=== PATIENT | male | born 1960 | race Caucasian/White ===

== ENCOUNTER → 2018-12-28 11:22 | Outpatient (CLI) | payer OTHER, SELFPAY ==
[2018-12-28 12:41] LABS: AST(SGOT) 21 U/L (15-37); Alanine Aminotransfer ALT/SGPT 39 U/L (16-61); Albumin, Serum 3.9 g/dL (3.2-5.0); Alkaline Phosphatase 51 U/L (45-117); Bilirubin, Direct 0.15 mg/dL (0.00-0.30); Cholesterol 150 mg/dL (200); Globulin 3.8 g/dL (2.2-4.2); High Density Lipoprotein 59 mg/dL; Protein, Total 7.7 g/dL (6.4-8.2); Triglycerides 100 mg/dL; Very Low Density Lipoprotein 20 mg/dL (5-40)
== END ==
PROVIDERS: Nurse Practitioner Family; Referring Provider Physician Assistant Medical; Visit Provider Physician Assistant Medical
DX: E78.5 Hyperlipidemia, unspecified (principal); I25.10 Atherosclerotic heart disease of native coronary artery without angina pectoris
CPT/HCPCS: 36415; 80061; 80076

== ENCOUNTER → 2019-07-26 08:35 | Outpatient (CLI) | payer OTHER, SELFPAY ==
[2019-05-06 11:08] VITALS: BMI 30.2
--- NOTE | 2019-07-26 08:37 | VDLE_ITS ---
Reason For Study: Swelling RIGHT LEFT GSV is normal. CFV is compressible, spontaneous, phasic, CFV is compressible, spontaneous, phasic, competent, and demonstrates normal competent and demonstrates normal augmentation. augmentation. FV is compressible, spontaneous, phasic, FV is compressible, spontaneous, phasic, competent and demonstrates normal competent and demonstrates normal augmentation. augmentation. POP V is compressible, spontaneous, phasic, POP V is compressible, spontaneous, phasic, competent and demonstrates normal competent and demonstrates normal augmentation. augmentation. T/P Trunk is compressible. T/P Trunk is compressible. PTV is compressible. PTV is compressible. LT PerV is compressible. RT PerV is compressible. Left GSV is partially compressible in the Procedure distal thigh. Exam performed in department. Compared to study done on 05/03/19 @ [facility]. A preliminary report was called and/or faxed to [facility]. Interpretation Summary Deep veins of the lower extremities are bilaterally patent and compressible segmentally. There is no evidence of deep vein thrombosis on either side. Valvular competence appears intact within the proximal deep venous systems bilaterally. The right great saphenous vein appears patent and compressible segmentally. Acute superficial thrombophlebitis is noted in the left great saphenous vein in the distal thigh. The remainder of the left great saphenous vein is patent and compressible. Ordering Physician: Kavon Saunders Performed By: Nelida Mace RVT
[2019-07-26 10:01] LABS: AST(SGOT) 25 U/L (15-37); Alanine Aminotransfer ALT/SGPT 39 U/L (16-61); Albumin, Serum 3.7 g/dL (3.2-5.0); Alkaline Phosphatase 56 U/L (45-117); Bilirubin, Direct 0.11 mg/dL (0.00-0.30); Cholesterol 140 mg/dL (200); Globulin 4.1 g/dL (2.2-4.2); High Density Lipoprotein 58 mg/dL; Protein, Total 7.8 g/dL (6.4-8.2); Triglycerides 99 mg/dL; Very Low Density Lipoprotein 20 mg/dL (5-40)
== END ==
PROVIDERS: Referring Provider Internal Medicine Cardiovascular Disease; Visit Provider Internal Medicine Cardiovascular Disease
DX: M79.89 Other specified soft tissue disorders (principal); I82.409 Acute embolism and thrombosis of unspecified deep veins of unspecified lower extremity; E78.2 Mixed hyperlipidemia
CPT/HCPCS: 36415; 80061; 80076; 93970

== ENCOUNTER → 2019-09-27 08:45 | Outpatient (CLI) | payer OTHER, SELFPAY ==
[2019-08-23 10:53] VITALS: BMI 30.2
--- NOTE | 2019-09-27 08:47 | VDLE_ITS ---
Reason For Study: swelling RIGHT LEFT CFV is compressible, spontaneous, phasic, CFV is compressible, spontaneous, phasic, competent and demonstrates normal competent, and demonstrates normal augmentation. augmentation. FV is compressible, spontaneous, phasic, FV is compressible, spontaneous, phasic, competent and demonstrates normal competent and demonstrates normal augmentation. augmentation. POP V is compressible, spontaneous, phasic, POP V is compressible, spontaneous, phasic, competent and demonstrates normal competent and demonstrates normal augmentation. augmentation. T/P Trunk is compressible. T/P Trunk is compressible. PTV is compressible. PTV is compressible. RT PerV is compressible. LT PerV is compressible. SFJ is competent and measures .64 x .75 cm. SFJ is competent and measures .48 x .50 cm. GSV proximal thigh measures .22 x .25 cm. GSV proximal thigh measures .23 x .28 cm. GSV at knee measures .22 x .25 cm. GSV at knee measures .30 x .28 cm. GSV above knee is competent. GSV above knee is INCOMPETENT for greater GSV below knee is competent. than 0.5 seconds. SSV proximal calf is competent and GSV below knee is INCOMPETENT for greater measures .26 x .32 cm. than 0.5 seconds. Procedure GSV is now compressible. Exam performed in department. SSV proximal calf is competent and The exam was diagnostic. measures .21 x .22 cm. Interpretation Summary Deep veins of the lower extremities are bilaterally patent and compressible segmentally. There is no evidence of deep vein thrombosis on either side. Valvular competence appears intact within the proximal deep venous systems bilaterally. The great saphenous veins appear bilaterally patent and compressible segmentally. Sapheno-femoral junctions are bilaterally competent . The right great saphenous vein appears segmentally competent. The left great saphenous vein appears segmentally incompetent. Small saphenous veins are patent and competent bilaterally. There appears to be resolution of the superficial thrombophlebitis in the left great saphenous vein noted in a prior study on 07/26/2019. Ordering Physician: David Devine Performed By: Sage Haro RVT
== END ==
PROVIDERS: Referring Provider Surgery; Visit Provider Surgery
DX: I83.10 Varicose veins of unspecified lower extremity with inflammation (principal); M79.605 Pain in left leg; M79.89 Other specified soft tissue disorders; I80.3 Phlebitis and thrombophlebitis of lower extremities, unspecified
CPT/HCPCS: 93970

== ENCOUNTER → 2021-11-29 10:27 | Outpatient (CLI) | payer OTHER, SELFPAY ==
[2021-11-29 11:25] LABS: AST(SGOT) 27 U/L (15-37); Alanine Aminotransfer ALT/SGPT 54 U/L (16-61); Albumin, Serum 3.7 g/dL (3.2-5.0); Alkaline Phosphatase 58 U/L (45-117); Bilirubin, Direct 0.11 mg/dL (0.00-0.30); Cholesterol 159 mg/dL (200); Globulin 4.2 g/dL (2.2-4.2); High Density Lipoprotein 70 mg/dL; Protein, Total 7.9 g/dL (6.4-8.2); Triglycerides 73 mg/dL; Very Low Density Lipoprotein 15 mg/dL (5-40)
== END ==
PROVIDERS: PCP Family Medicine; Visit Provider Internal Medicine Cardiovascular Disease
DX: E78.00 Pure hypercholesterolemia, unspecified (principal)
CPT/HCPCS: 36415; 80061; 80076

== ENCOUNTER → 2022-11-18 | Outpatient (CLI) | payer OTHER, SELFPAY ==
[2022-11-18 14:11] LABS: AST(SGOT) 23 U/L (15-37); Alanine Aminotransfer ALT/SGPT 45 U/L (16-61); Albumin, Serum 3.8 g/dL (3.2-5.0); Alkaline Phosphatase 49 U/L (45-117); Bilirubin, Direct 0.17 mg/dL (0.00-0.30); Cholesterol 149 mg/dL (200); High Density Lipoprotein 70 mg/dL; Protein, Total 7.8 g/dL (6.4-8.2); Triglycerides 80 mg/dL; Very Low Density Lipoprotein 16 mg/dL (5-40)
== END | disposition home or self-care (01) ==
LOC: LAB 13:02
PROVIDERS: PCP Family Medicine; Visit Provider Internal Medicine Cardiovascular Disease
DX: E78.00 Pure hypercholesterolemia, unspecified (principal)
CPT/HCPCS: 36415; 80061; 80076

== ENCOUNTER → 2024-01-30 | Outpatient (CLI) | payer OTHER, SELFPAY ==
--- OUTSIDE RECORDS SUMMARY | 2024-01-30 06:49 | XMS RPT_ITS | CCD ---
Author Name Unknown Address [address] [place] [address] Organization [facility] Care Team Providers Care Career Services Manager Name Role Phone Lexus Sow Unavailable Unavailable TAMI Cohen, Estela Jacobs Unavailable [phone] Jared Real Unavailable Unavailable Yoahn An MD Primary Care Provider Medications Completed/Discontinued Medications Medication Drug Class(es) Dates Sig (Normalized) Sig (Original) aspirin 81 mg chewable tablet (6 sources) Nonsteroidal Anti-inflammatory Drug Start: 05-15-2021 take 1 tablet by mouth once daily aspirin 81 mg chewable tablet Indications: Coronary artery disease involving big sandy heart, unspecified vessel or lesion type, unspecified whether angina present Take 1 tablet by mouth once daily. 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; Translations: [Coronary arteriosclerosis] Onset: 02-11-2011 07-31-2016 Chronic Disorders of lipid metabolism (7 sources) Hyperlipidemia; Translations: [Hypercholesterolemia ] Onset: 02-11-2011 02-11-2011 Chronic Essential hypertension (3 sources) Hypertensive disorder; Translations: [Essential (primary) hypertension] Onset: 12-14-2021 12-14-2021 Chronic Other nutritional; endocrine; and metabolic disorders (2 sources) Obesity caused by energy imbalance; Translations: [Other obesity due to excess calories] Onset: 12-14-2021 12-14-2021 Chronic Screening or history of mental health and substance abuse (4 sources) Tobacco dependence syndrome; Translations: [Nicotine dependence, unspecified, uncomplicated] Onset: 02-11-2011 02-11-2011 Chronic Spondylosis; intervertebral disc disorders; other back problems (1 source) Degeneration of lumbar intervertebral disc; Translations: [Other intervertebral disc degeneration, lumbar region] 01-27-2024 Chronic Unclassified (3 sources) Long-term drug therapy; Translations: [Other bobbin marker (current) drug therapy] Onset: 02-11-2011 02-11-2011 Past or Other Problems Problem Classification Problem Date Documented Da te Episodic/Chronic Abdominal hernia (2 sources) Umbilical hernia; Translations: [Umbilical hernia without obstruction or gangrene] Onset: 11-06-2012 11-06-2012 Episodic Coronary atherosclerosis and other heart disease (7 sources) Coronary angioplasty status; Translations: [History of myocardial infarction] Onset: 02-11-2011 02-11-2011 Episodic Other aftercare (1 source) Other bobbin marker (current) drug therapy; Translations: [Other fci (current) drug therapy] Onset: 02-11-2011 02-11-2011 Episodic Other circulatory disease (5 sources) Abnormal result of cardiovascular function study, unspecified; Translations: [History of myocardial infarction] Onset: 02-11-2011 02-11-2011 Episodic Other nutritional; endocrine; and metabolic disorders (11 sources) Body mass index (BMI) 28.0-28.9, adult; Translations: [Body mass index (BMI) 29.0-29.9, adult] Onset: 12-09-2013 Resolved: 02-03-2017 02-03-2017 Episodic Other nutritional; endocrine; and metabolic disorders (6 sources) Body mass index (BMI) 27.0-27.9, adult; Translations: [Body mass index (BMI) 27.0-27.9, adult] Onset: 06-12-2015 Resolved: 02-02-2016 06-12-2015 Episodic Other nutritional; endocrine; and metabolic disorders (3 sources) Body mass index (BMI) 29.0-29.9, adult; Translations: [Body mass index (BMI) 29.0-29.9, adult] Onset: 02-03-2017 02-03-2017 Episodic Residual codes; unclassified (3 sources) FH: Raised blood lipids; Translations: [Family history of other endocrine, nutritional and metabolic diseases] 06-12-2015 Episodic Residual codes; unclassified (3 sources) Family history of ischemic heart disease and other diseases of the circulatory system; Translations: [Family history of ischemic heart disease and other diseases of the circulatory system] 06-12-2015 Episodic Unclassified (6 sources) FH: Hypertension; Translations: [Family history of ischemic heart disease and other diseases of the circulatory system] 06-12-2015 Episodic Results Test Name Value Interpretation Reference Range Facil ity Vital Signs Date Time Vital Sign Value Performing Clinician Madhu maurer 01-27-2024 14:03-0500 Body weight 103.42 kg Yohan An MD Work Phone: [facility] 01-27-2024 14:03-0500 Diastolic blood pressure 74 mm[Hg] Yohan An MD Work Phone: [facility] 01-27-2024 14:03-0500 Heart rate 102 /min Yohan An MD Work Phone: [facility] 01-27-2024 14:03-0500 Respiratory rate 18 /min Yohan An MD Work Phone: [facility] 01-27-2024 14:03-0500 SaO2% (BldA) [Mass fraction] 95 % Yohan An MD Work Phone: [facility] 01-27-2024 14:03-0500 Systolic blood pressure 128 mm[Hg] Yohan An MD Work Phone: [facility] 08-12-2017 11:56-0400 BMI (Body Mass Index) 28.37 kg/m2 [facility] Work Phone: 08-12-2017 11:56-0400 Weight 102.97 kg [facility] Work Phone: 02-03-2017 13:06-0500 BP Diastolic 78 mm[Hg] [facility] Work Phone: 02-03-2017 13:06-0500 BP Systolic 126 mm[Hg] [facility] Work Phone: 02-03-2017 13:06-0500 Pulse (Heart Rate) 84 /min [facility] Work Phone: 02-03-2017 13:06-0500 Respiratory Rate 16 /min [facility] Work Phone: 08-09-2016 15:33-0400 Heart rate 90 /min Estela Cohen PA-C [employer] Work Phone: 08-09-2016 15:23-0400 BSA (Body Surface Area) 2.31 m2 [facility] Work Phone: 12-09-2013 15:10-0500 Heart rate 453 ms Estela Cohen PA-C [facility] Work Phone: 04-20-2012 09:08-0400 Height 190.5 cm [facility] Work Phone: Encounters Encounter Date Encounter Type Care Provider Facility Start: 01-27-2024 End: 01-27-2024 Patient encounter procedure Yohan An MD Work Phone: [facility] Procedures Date Procedure Procedure Detail Performing Clinician Start: 11-29-2021 Lipid 1996 panel - S nery or Plasma Yohan An MD Work Phone: Start: 08-12-2017 End: 09-01-2017 *BMP Estela Cohen PA-C Work Phone: Start: 08-12-2017 End: 09-01-2017 *Hepatic Function Panel Estela grajeda PA-C Work Phone: Start: 08-12-2017 End: 09-01-2017 CBC W Auto Differential panel - Blood Estela Cohen PA-C Work Phone: Start: 08-12-2017 End: 08-12-2017 Follow Up Appt Other Estela soto PA-C Work Phone: Start: 08-12-2017 End: 09-01-2017 Lipid 1996 panel - Serum or Plasma Estela Cohen PA-C Work Phone: Start: 08-12-2017 End: 08-12-2017 Follow Up Appt Other Estela soto PA-C Work Phone: Start: 02-03-2017 End: 02-03-2017 Follow Up Appt 6 months Kavon Saunders MD Start: 02-03-2017 End: 02-03-2017 MMM Kavon Saunders MD Start: 02-03-2017 End: 02-03-2017 Dietary management education, guidance, and counseling Estela Cohen PA-C Start: 02-03-2017 End: 02-03-2017 Follow Up Appt 6 months Kavon Saunders MD Start: 02-03-2017 End: 02-03-2017 MMM Kavon Saunders MD Start: 08-29-2016 End: 10-30-2016 *Hepatic Function Panel Kavon Saunders MD Start: 08-29-2016 End: 10-30-2016 Lipid 1996 panel - Serum or Plasma Kavon Saunders MD Start: 08-29-2016 End: 10-30-2016 *Hepatic Function Panel Kavon Saunders MD Start: 08-29-2016 End: 10-30-2016 Lipid panel [AGGREGATE] Kavon Saunders MD Start: 08-09-2016 End: 08-07-2017 Ecg routine ecg w/least 12 lds w/i&r Estela Cohen PA-C Work Phone: Start: 08-09-2016 End: 08-07-2017 Follow Up Appt 6 months Estela grajeda PA-C Work Phone: Start: 08-09-2016 End: 08-07-2017 PFM Estela Cohen PA-C Work Phone: Start: 08-09-2016 End: 08-07-2017 Electrocardiogram, complete Estela Cohen PA-C Work Phone: Start: 08-09-2016 End: 08-07-2017 Follow Up Appt 6 months Estela grajeda PA-C Work Phone: Start: 08-09-2016 End: 08-07-2017 PFM Estela Cohen PA-C Work Phone: Start: 02-02-2016 End: 02-24-2016 *Hepatic Function Panel Kavon Saunders MD Start: 02-02-2016 End: 02-02-2016 Follow Up Appt 6 months Kavon Saunders MD Start: 02-02-2016 End: 02-24-2016 Lipid 1996 panel - Serum or Plasma Kavon Saunders MD Start: 02-02-2016 End: 02-02-2016 GUILLERMO Saunders MD Start: 02-02-2016 End: 02-24-2016 *Hepatic Function Panel Kavon Saunders MD Start: 02-02-2016 End: 02-02-2016 Follow Up Appt 6 months Kavon Saunders MD Start: 02-02-2016 End: 02-24-2016 Lipid panel [AGGREGATE] Kavon Saunders MD Start: 02-02-2016 End: 02-02-2016 GUILLERMO Saunders MD Start: 06-12-2015 End: 06-13-2015 Documentation of current medications Estela Cohen PA-C Work Phone: Start: 06-12-2015 End: 06-12-2015 Follow Up Appt 6 months Estela grajeda PA-C Work Phone: Start: 06-12-2015 End: 06-12-2015 PFM Estela Cohen PA-C Work Phone: Start: 06-12-2015 End: 06-13-2015 Smoking cessation education Estela Cohen PA-C Work Phone: Start: 06-12-2015 End: 06-13-2015 Documentation of current medications Estela Cohen PA-C Work Phone: Start: 06-12-2015 End: 06-12-2015 Follow Up Appt 6 months Estela grajeda PA-C Work Phone: Start: 06-12-2015 End: 06-12-2015 PFM Estela Cohen PA-C Work Phone: Start: 06-12-2015 End: 06-13-2015 Smoking cessation education Estela Cohen PA-C Work Phone: Start: 12-12-2014 End: 06-12-2015 *Hepatic Function Panel Kavon Saunders MD Start: 12-12-2014 End: 06-05-2015 Follow Up Appt 6 months Kavon Saunders MD Start: 12-12-2014 End: 06-12-2015 Lipid 1996 panel - Serum or Plasma Kavon Saunders MD Start: 12-12-2014 End: 06-05-2015 MMM Kavon Saunders MD Start: 12-12-2014 End: 06-12-2015 *Hepatic Function Panel Kavon Saunders MD Start: 12-12-2014 End: 06-05-2015 Follow Up Appt 6 months Kavon Saunders MD Start: 12-12-2014 End: 06-12-2015 Lipid panel [AGGREGATE] Kavon Saunders MD Start: 12-12-2014 End: 06-05-2015 MMM Kavon Saunders MD Start: 07-01-2014 End: 06-05-2015 *Hepatic Function Panel Kavon Saunders MD Start: 07-01-2014 End: 06-05-2015 Lipid 1996 panel - Serum or Plasma Kavon Saunders MD Start: 07-01-2014 End: 06-05-2015 *Hepatic Function Panel aKvon Saunders MD Start: 07-01-2014 End: 06-05-2015 Lipid panel [AGGREGATE] Kavon Saunders MD Start: 06-06-2014 End: 06-06-2014 Follow Up Appt 6 months Estela grajeda PA-C Work Phone: Start: 06-06-2014 End: 06-05-2015 Nuclear stress test -exercise Estela Cohen PA-C Work Phone: Start: 06-06-2014 End: 06-06-2014 PF Estela Cohen PA-C Work Phone: Start: 06-06-2014 End: 06-06-2014 Follow Up Appt 6 months Estela grajeda PA-C Work Phone: Start: 06-06-2014 End: 06-05-2015 Nuclear stress test -exercise Estela oChen PA-C Work Phone: Start: 06-06-2014 End: 06-06-2014 PFM Estela Cohen PA-C Work Phone: Start: 12-09-2013 End: 05-25-2014 Ecg routine ecg w/least 12 lds w/i&r Kavon Saunders MD Start: 12-09-2013 End: 05-25-2014 Follow Up Appt 6 months Kavon Saunders MD Start: 12-09-2013 End: 05-25-2014 MMM Kavon Saunders MD Start: 12-09-2013 End: 05-25-2014 Electrocardiogram, complete Kavon Saunders MD Start: 12-09-2013 End: 05-25-2014 Follow Up Appt 6 months Kavon Saunders MD Start: 12-09-2013 End: 05-25-2014 MMM Kavon Saunders MD Start: 12-01-2013 End: 01-10-2014 Ecg routine ecg w/least 12 lds w/i&r Estela Cohen PA-C Work Phone: Start: 12-01-2013 End: 01-10-2014 Lipid 1996 panel - Serum or Plasma Estela Cohen PA-C Work Phone: Start: 12-01-2013 End: 01-10-2014 *Hepatic Function Panel Estela grajeda PA-C Work Phone: Start: 12-01-2013 End: 01-10-2014 Lipid panel [AGGREGATE] Estela grajeda PA-C Work Phone: Start: 05-31-2013 End: 06-14-2013 *Hepatic Function Panel Kavon Saunders MD Start: 05-31-2013 End: 06-14-2013 Lipid 1996 panel - Serum or Plasma Kavon Saunders MD Start: 05-31-2013 End: 06-14-2013 *Hepatic Function Panel Kavon Saunders MD Start: 05-31-2013 End: 06-14-2013 Lipid panel [AGGREGATE] Kvaon Saunders MD Start: 05-06-2013 End: 05-06-2013 Follow Up Appt 6 months Estela grajeda PA-C Work Phone: Start: 05-06-2013 End: 05-06-2013 PFM Estela Cohen PA-C Work Phone: Start: 05-06-2013 End: 05-06-2013 Follow Up Appt 6 months Estela grajeda PA-C Work Phone: Start: 05-06-2013 End: 05-06-2013 PFM Estela Cohen PA-C Work Phone: Start: 12-07-2012 End: 12-31-2012 *Hepatic Function Panel Kavon Saunders MD Start: 12-07-2012 End: 12-31-2012 Lipid 1996 panel - Serum or Plasma Kavon Saunders MD Start: 12-07-2012 End: 12-31-2012 *Hepatic Function Panel Kavon Saunders MD Start: 12-07-2012 End: 12-31-2012 Lipid panel [AGGREGATE] Kavon Saunders MD Start: 10-19-2012 End: 10-19-2012 Follow Up Appt 6 months Kavon Saunders MD Start: 10-19-2012 End: 10-19-2012 Follow Up Appt 6 months Kavon Saunders MD Start: 06-29-2012 End: 12-31-2012 *Hepatic Function Panel Kavon Saunders MD Start: 06-29-2012 End: 12-31-2012 Lipid 1996 panel - Serum or Plasma Kavon Saunders MD Start: 06-29-2012 End: 12-31-2012 *Hepatic Function Panel Kavon Saunders MD Start: 06-29-2012 End: 12-31-2012 Lipid panel [AGGREGATE] Kavon Saunders MD Start: 04-20-2012 End: 05-06-2013 Follow Up Appt 6 months Kavon Saunders MD Start: 04-20-2012 End: 07-26-2012 Follow Up Appt Other Kavon Saunders MD Start: 04-20-2012 End: 05-06-2013 Follow Up Appt 6 months Kavon Saunders MD Start: 04-20-2012 End: 07-26-2012 Follow Up Appt Other Kavon Saunders MD Plan of Treatment Date Care Activity Detail Author Start: 05-15-2031 Urine microalbumin profile DTaP,Tdap,Td Vaccine (2 - Td or Tdap) [facility] Start: 11-29-2026 Lipid panel Lipid Screening [facility] Start: 01-27-2025 Annual PCP Team Chronic Disease Visit Annual PCP Team Chronic Disease Visit [facility] Start: 01-27-2025 BP Controlled (<130/80) BP Controlled (<130/80) [facility] Start: 12-01-2023 Depression Assessment Depression Assessment [facility] Start: 08-01-2023 Influenza vaccination Influenza Vaccine (#1) [facility] Start: 12-14-2022 Annual PCP Team Chronic Disease Visit Annual PCP Team Chronic Disease Visit [facility] Start: 12-07-2022 Screening for malignant neoplasm of colon [facility] Start: 2021 RSV Vaccine (1 - 1-dose 60+ series) RSV Vaccine (1 - 1-dose 60+ series) [facility] Start: 03-02-2018 End: 09-05-2017 *Hepatic Function Panel *Hepatic Function Panel [facility] Work Phone: Start: 03-02-2018 End: 09-05-2017 Lipid 1996 panel *Lipid Profile CC PCP [facility] Work Phone: Start: 02-09-2018 End: 02-09-2018 Appointment Appointment [facility] Work Phone: Start: 08-12-2017 End: 09-01-2017 *BMP *BMP [facility] Work Phone: Start: 08-12-2017 End: 09-01-2017 *Hepatic Function Panel *Hepatic Function Panel [facility] Work Phone: Start: 08-12-2017 End: 09-01-2017 CBC W Auto Differential panel - Blood *CBC without Diff [facility] Work Phone: Start: 08-12-2017 End: 08-12-2017 Follow Up Appt Other Follow Up Appt Other [facility] Work Phone: Start: 08-12-2017 End: 09-01-2017 Lipid 1996 panel *Lipid Profile CC PCP [facility] Work Phone: Start: 08-12-2017 End: 08-12-2017 *BMP *BMP [facility] Work Phone: Start: 08-12-2017 End: 08-12-2017 *Hepatic Function Panel *Hepatic Function Panel [facility] Work Phone: Start: 08-12-2017 End: 08-12-2017 CBC W Auto Differential panel - Blood *CBC without Diff [facility] Work Phone: Start: 08-12-2017 End: 08-12-2017 Follow Up Appt Other Follow Up Appt Other [facility] Work Phone: Start: 08-12-2017 End: 08-12-2017 Lipid panel [AGGREGATE] *Lipid Profile CC PCP [facility] Work Phone: Start: 02-03-2017 End: 02-03-2017 Follow Up Appt 6 months Follow Up Appt 6 months [facility] Work Phone: Start: 02-03-2017 End: 02-03-2017 MMM MMM [facility] Work Phone: Start: 02-03-2017 End: 02-03-2017 Follow Up Appt 6 months Follow Up Appt 6 months [facility] Work Phone: Start: 02-03-2017 End: 02-03-2017 MMM MMM [facility] Work Phone: Start: 08-29-2016 End: 10-30-2016 *Hepatic Function Panel *Hepatic Function Panel [facility] Work Phone: Start: 08-29-2016 End: 10-30-2016 Lipid 1996 panel *Lipid Profile CC PCP [facility] Work Phone: Start: 08-29-2016 End: 10-30-2016 *Hepatic Function Panel *Hepatic Function Panel [facility] Work Phone: Start: 08-29-2016 End: 10-30-2016 Lipid panel [AGGREGATE] *Lipid Profile CC PCP [facility] Work Phone: Start: 08-09-2016 End: 08-07-2017 Ecg routine ecg w/least 12 lds w/i&r EKG (In office) [facility] Work Phone: Start: 08-09-2016 End: 08-07-2017 Follow Up Appt 6 months Follow Up Appt 6 months [facility] Work Phone: Start: 08-09-2016 End: 08-07-2017 PFM PFM [facility] Work Phone: Start: 08-09-2016 End: 08-07-2017 Electrocardiogram, complete EKG (In office) [facility] Work Phone: Start: 08-09-2016 End: 08-07-2017 Follow Up Appt 6 months Follow Up Appt 6 months [facility] Work Phone: Start: 08-09-2016 End: 08-07-2017 PFM PFM [facility] Work Phone: Start: 2016 Prostate specific antigen measurement Prostate Cancer Screening Discussion [facility] Start: 02-02-2016 End: 02-24-2016 *Hepatic Function Panel *Hepatic Function Panel [facility] Work Phone: Start: 02-02-2016 End: 02-02-2016 Follow Up Appt 6 months Follow Up Appt 6 months [facility] Work Phone: Start: 02-02-2016 End: 02-24-2016 Lipid 1996 panel *Lipid Profile CC PCP [facility] Work Phone: Start: 02-02-2016 End: 02-02-2016 MMM MMM [facility] Work Phone: Start: 02-02-2016 End: 02-24-2016 *Hepatic Function Panel *Hepatic Function Panel [facility] Work Phone: Start: 02-02-2016 End: 02-02-2016 Follow Up Appt 6 months Follow Up Appt 6 months [facility] Work Phone: Start: 02-02-2016 End: 02-24-2016 Lipid panel [AGGREGATE] *Lipid Profile CC PCP [facility] Work Phone: Start: 02-02-2016 End: 02-02-2016 MMM MMM [facility] Work Phone: Start: 06-12-2015 End: 06-12-2015 Follow Up Appt 6 months Follow Up Appt 6 months [facility] Work Phone: Start: 06-12-2015 End: 06-12-2015 PFM PFM [facility] Work Phone: Start: 06-12-2015 End: 06-12-2015 Follow Up Appt 6 months Follow Up Appt 6 months [facility] Work Phone: Start: 06-12-2015 End: 06-12-2015 PFM PFM [facility] Work Phone: Start: 12-12-2014 End: 06-12-2015 *Hepatic Function Panel *Hepatic Function Panel [facility] Work Phone: Start: 12-12-2014 End: 06-05-2015 Follow Up Appt 6 months Follow Up Appt 6 months [facility] Work Phone: Start: 12-12-2014 End: 06-12-2015 Lipid 1996 panel *Lipid Profile CC PCP [facility] Work Phone: Start: 12-12-2014 End: 06-05-2015 MMM MMM [facility] Work Phone: Start: 12-12-2014 End: 06-12-2015 *Hepatic Function Panel *Hepatic Function Panel [facility] Work Phone: Start: 12-12-2014 End: 06-05-2015 Follow Up Appt 6 months Follow Up Appt 6 months [facility] Work Phone: Start: 12-12-2014 End: 06-12-2015 Lipid panel [AGGREGATE] *Lipid Profile CC PCP [facility] Work Phone: Start: 12-12-2014 End: 06-05-2015 MMM MMM [facility] Work Phone: Start: 07-01-2014 End: 06-05-2015 *Hepatic Function Panel *Hepatic Function Panel [facility] Work Phone: Start: 07-01-2014 End: 06-05-2015 Lipid 1996 panel *Lipid Profile CC PCP [facility] Work Phone: Start: 07-01-2014 End: 06-05-2015 *Hepatic Function Panel *Hepatic Function Panel [facility] Work Phone: Start: 07-01-2014 End: 06-05-2015 Lipid panel [AGGREGATE] *Lipid Profile CC PCP [facility] Work Phone: Start: 06-06-2014 End: 06-06-2014 Follow Up Appt 6 months Follow Up Appt 6 months [facility] Work Phone: Start: 06-06-2014 End: 06-06-2014 Nuclear stress test -exercise Nuclear stress test -exercise [facility] Work Phone: Start: 06-06-2014 End: 06-06-2014 PFM PFM [facility] Work Phone: Start: 06-06-2014 End: 06-06-2014 Follow Up Appt 6 months Follow Up Appt 6 months [facility] Work Phone: Start: 06-06-2014 End: 06-06-2014 Nuclear stress test -exercise Nuclear stress test -exercise [facility] Work Phone: Start: 06-06-2014 End: 06-06-2014 PFM PFM [facility] Work Phone: Start: 12-09-2013 End: 05-25-2014 Ecg routine ecg w/least 12 lds w/i&r EKG (In office) [facility] Work Phone: Start: 12-09-2013 End: 05-25-2014 Follow Up Appt 6 months Follow Up Appt 6 months [facility] Work Phone: Start: 12-09-2013 End: 05-25-2014 MMM MMM [facility] Work Phone: Start: 12-09-2013 End: 05-25-2014 Electrocardiogram, complete EKG (In office) [facility] Work Phone: Start: 12-09-2013 End: 05-25-2014 Follow Up Appt 6 months Follow Up Appt 6 months [facility] Work Phone: Start: 12-09-2013 End: 05-25-2014 MMM MMM [facility] Work Phone: Start: 12-01-2013 End: 01-10-2014 *Hepatic Function Panel *Hepatic Function Panel [facility] Work Phone: Start: 12-01-2013 End: 01-10-2014 Lipid 1996 panel *Lipid Profile CC PCP [facility] Work Phone: Start: 12-01-2013 End: 01-10-2014 *Hepatic Function Panel *Hepatic Function Panel [facility] Work Phone: Start: 12-01-2013 End: 01-10-2014 Lipid panel [AGGREGATE] *Lipid Profile CC PCP [facility] Work Phone: Start: 05-31-2013 End: 06-14-2013 *Hepatic Function Panel *Hepatic Function Panel [facility] Work Phone: Start: 05-31-2013 End: 06-14-2013 Lipid 1996 panel *Lipid Profile [facility] Work Phone: Start: 05-31-2013 End: 06-14-2013 *Hepatic Function Panel *Hepatic Function Panel [facility] Work Phone: Start: 05-31-2013 End: 06-14-2013 Lipid panel [AGGREGATE] *Lipid Profile [facility] Work Phone: Start: 05-06-2013 End: 05-06-2013 Follow Up Appt 6 months Follow Up Appt 6 months [facility] Work Phone: Start: 05-06-2013 End: 05-06-2013 PFM PFM [facility] Work Phone: Start: 05-06-2013 End: 05-06-2013 Follow Up Appt 6 months Follow Up Appt 6 months [facility] Work Phone: Start: 05-06-2013 End: 05-06-2013 PFM PFM [facility] Work Phone: Start: 12-07-2012 End: 12-31-2012 *Hepatic Function Panel *Hepatic Function Panel [facility] Work Phone: Start: 12-07-2012 End: 12-31-2012 Lipid 1996 panel *Lipid Profile [facility] Work Phone: Start: 12-07-2012 End: 12-31-2012 *Hepatic Function Panel *Hepatic Function Panel [facility] Work Phone: Start: 12-07-2012 End: 12-31-2012 Lipid panel [AGGREGATE] *Lipid Profile [facility] Work Phone: Start: 10-19-2012 End: 10-19-2012 Follow Up Appt 6 months Follow Up Appt 6 months [facility] Work Phone: Start: 10-19-2012 End: 10-19-2012 Follow Up Appt 6 months Follow Up Appt 6 months [facility] Work Phone: Start: 06-29-2012 End: 12-31-2012 *Hepatic Function Panel *Hepatic Function Panel [facility] Work Phone: Start: 06-29-2012 End: 12-31-2012 Lipid 1996 panel *Lipid Profile [facility] Work Phone: Start: 06-29-2012 End: 12-31-2012 *Hepatic Function Panel *Hepatic Function Panel [facility] Work Phone: Start: 06-29-2012 End: 12-31-2012 Lipid panel [AGGREGATE] *Lipid Profile [facility] Work Phone: Start: 04-20-2012 End: 05-06-2013 Follow Up Appt 6 months Follow Up Appt 6 months [facility] Work Phone: Start: 04-20-2012 End: 07-26-2012 Follow Up Appt Other Follow Up Appt Other [facility] Work Phone: Start: 04-20-2012 End: 05-06-2013 Follow Up Appt 6 months Follow Up Appt 6 months [facility] Work Phone: Start: 04-20-2012 End: 07-26-2012 Follow Up Appt Other Follow Up Appt Other [facility] Work Phone: Start: 2011 Shingrix Vaccine (1 of 2) Shingrix Vaccine (1 of 2) [facility] Start: 2006 Diabetes Screening Diabetes Screening [facility] Start: 2006 Screening for malignant neoplasm of colon [facility] Start: 1979 BP Controlled (<130/80) BP Controlled (<130/80) [facility] Start: 1979 Hepatitis B surface antibody level LDL Cholesterol [facility] Start: 1979 Hepatitis C screening Hepatitis C Screening [facility] Start: 1967 Pneumococcal vaccination Pneumococcal Vaccine (1 of 2 - PCV) [facility] Start: 1961 Covid-19 Vaccine (#1) Covid-19 Vaccine (#1) [facility] Patient Education [employer] Work Phone: [facility] Immunizations Immunization Date Immunization Notes Care Provider Fa roly 05-15-2021 tetanus toxoid, redu geraldo diphtheria toxoid, and acellular pertussis vaccine, adsorbed Yohan An MD Work Phone: [facility] Payers Date Payer Category Payer Private Health Insurance [employer] PPO TPA [id number] 2020-Present [address] [place] [id number] PPO [id number] Social History Date Type Detail Facility Start: 05-03-2019 End: 01-27-2024 Tobacco smoking status NHIS Smokes tobacco daily [facility] Work Phone: History of tobacco use Cigarette Smoker C [facility] Work Phone: Start: 05-03-2019 End: 01-27-2024 Cigarettes smoked current (pack per day) - Reported 1 [facility] Start: 05-03-2019 End: 01-27-2024 Tobacco use and exposure Smokeless tobacco non-user [facility] Work Phone: Start: 12-14-2021 End: 01-27-2024 Alcohol intake Current drinker of alcohol (finding) [facility] Start: 12-14-2021 End: 01-27-2024 Tobacco use panel [facility] National Score (1-10 0), lower number is lower risk 34 [facility] Start: 05-15-2021 [facility] Start: 1960 Sex Assigned At Not on file C [facility] History of Present illness Narrative 01-27-2024 Yohan An MD - 01/27/2024 2:04 PM EST Note Date & Type Note Facility 01-27-2024 History of Presen t illness Narrative Chief Complaint Patient presents with: Pre-Op Exam HPI Simón Bentley is a 63 year old male who presents here today for Above Complaints.. Patient here today for pre operative clearance for microdecompression/microdiscectomy L2-S1 to be completed by Dr. Rhett Yost on 02/01 under general anesthesia. Patient denies complications with anesthesia in the past. Patient with history of PR and CAD managed by [facility] cardiology. 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 Has nitro at home which he has never needed. Able to climb flight of stairs (5.5 METS). BP well controlled today on lisinopril and metoprolol. CBC and chemistry obtained yesterday were normal without anemia or GREGORY. Denies weight, fever/chills, angina, SOB, edema, claudication. Past medical history, appointments, medications, allergies reviewed. Previous Medical History PAST MEDICAL HISTORY Diagnosis Date Class 1 obesity due to excess calories with serious comorbidity and body mass index (BMI) of 30.0 to 30.9 in adult Coronary artery disease involving big sandy coronary artery of big sandy heart without angina pectoris Dr. Saunders DVT femoral (deep venous thrombosis) with thrombophlebitis, left (HCC) 05/03/2019 Traumatic HTN (hypertension) Hypercholesteremia PR (myocardial infarction) ([facility]) 2005 Previous Surgical History PAST SURGICAL HISTORY Procedure Laterality Date PAST SURGICAL HISTORY OF 12/01/2005 cardiac stents placed x2 PAST SURGICAL HISTORY OF 07/01/2012 Rt rotatator cuff RPR UMBILICAL HRNA 5 YRS/> REDUCIBLE 11/19/2012 Family History FAMILY HISTORY Problem Relation Age of Onset Hyperlipidemia Mother Hypertension Mother Diabetes Father Hypertension Father other (PR) Father Cancer Father other (PR) Brother other (PR) Maternal Grandmother other (PR) Maternal Grandfather other (suicide) Paternal Grandfather Patient Allergies ALLERGIES No Known Allergies Current Medications Current Outpatient Medications on File Prior to Visit Medication Sig lisinopril (ZESTRIL, PRINIVIL) 10 mg tablet Take 1 tablet by mouth once daily. aspirin 81 mg chewable tablet Take 1 tablet by mouth once daily. metoprolol tartrate, short acting, 25 mg tablet Take 25 mg by mouth twice daily. Multivitamin capsule Take 1 capsule by mouth. nitroglycerin sublingual (NITROSTAT) 0.4 mg SL tablet Dissolve 0.4 mg under the tongue every 5 minutes as needed. DOCOSAHEXANOIC ACID/EPA (FISH OIL ORAL) Take by mouth once daily. simvastatin 80 mg tablet Take 80 mg by mouth daily at bedtime. No current facility-administered medications on file prior to visit. Social History Social History Tobacco Use Smoking status: Every Day Packs/day: 1 Types: Cigarettes Smokeless tobacco: Never Substance Use Topics Alcohol use: Yes Alcohol/week: 3.0 - 6.0 standard drinks of alcohol Types: 3 - 6 Cans of Beer (12oz) per week Comment: daily Drug use: Never Review of Symptoms REVIEW OF SYSTEMS GENERAL: No weight loss, malaise or fevers RESPIRATORY: Negative for cough, hemoptysis, wheezing, COPD, dyspnea or shortness of breath CARDIOVASCULAR: Negative for chest pain, leg swelling, hypertension, CHF or palpitations GI: No nausea, vomiting, or diarrhea SKIN: Negative for lesions, rash, and itching EXAM: BP 128/74 Pulse 102 Resp 18 Wt 103.4 kg (228 lb) SpO2 95% BMI 29.67 kg/m General Appearance: Well appearing, alert, in no acute distress, well-hydrated, well nourished.. Skin: Skin color, texture, turgor normal, no suspicious rashes or lesions. Lungs: Lungs clear to auscultation. No wheezing, rhonchi, rales.. Heart: RRR without murmur, gallop, or rubs. No ectopy. Abdomen: Normal abdominal exam, Abdomen soft, non-tender. Bowel sounds normal. No masses, organomegaly. Extremities: No deformities, edema, skin discoloration, clubbing or cyanosis. Good capillary refill. . Health Maintenance List Covid-19 Vaccine(1) Never done Pneumococcal Vaccine(1 of 2 - PCV) Never done Hepatitis C Screening Never done BP Controlled (<130/80) Never done Diabetes Screening Never done Shingrix Vaccine(1 of 2) Never done Prostate Cancer Screening Discussion Never done RSV Vaccine(1 - 1-dose 60+ series) Never done Colorectal Cancer Screening due on 12/07/2022 Annual PCP Team Chronic Disease Visit due on 12/14/2022 Influenza Vaccine(1) Never done Depression Assessment Never done Lipid Screening due on 11/29/2026 DTaP,Tdap,Td Vaccine(2 - Td or Tdap) due on 05/15/2031 HIV Screening Discontinued ASSESSMENT/PLAN: 1. Pre-operative clearance - ICD9: V72.84, ICD10: Z01.818 (primary diagnosis) Patient with known CAD and history of PR with abnormal EKG. Agree with stress testing prior to procedure. If negative, he would be medically cleared for this procedure from my standpoint. No further labwork required by my office based on recent normal results. 2. DDD (degenerative disc disease), lumbar - ICD9: 722.52, ICD10: M51.36 See above 3. Coronary artery disease involving big sandy coronary artery of big sandy heart without angina pectoris - ICD9: 414.01, ICD10: I25.10 Asymptomatic on medical management. F/u cardiology recommendations. 4. Primary hypertension - ICD9: 401.9, ICD10: I10 - Controlled - Continue current medications - Recommend home blood pressure monitoring, to bring results to next visit - Encouraged sodium restriction, DASH or Mediterranean diet - Recommend regular aerobic exercise 5. Hypercholesteremia - ICD9: 272.0, ICD10: E78.00 Continue statin as prescribed. Yohan An MD documented in this encounter [facility] Note 01-09-2024 Telephone Encounter - Belkis Lester RN - 01/09/2024 3:53 PM ESTTelephone Encounter - Oksana Cao LPN - 01/09/2024 1:38 PM ESTTelephone Encounter - Oksana Cao LPN - 01/08/2024 2:28 PM EST Note Date & Type Note Facility 01-09-2024 Miscellaneous Notes Formattin g of this note might be different from the original. Pt returned call and appt has been made. Belkis Lester RN VM left for patient on secure VM to advise patient needs to schedule pre-op visit prior to 02/02/24 surgery appt with [facility]. Attempted to contact patient to schedule pre-op clearance visit as received paperwork from [facility]. No answer- attempt call back at later time. documented in this encounter [facility] Evaluation note Note Date & Type Note Facility documented in this encounter [facility] Summary Purpose Family History No Family History Records Found Advance Directives No Advanced Directives Records Found Additional Source Comments Source Comments (unrecognize d section and content) In the event this informatio n is protected by the Federal Confidentiality of Alcohol and Drug Abuse Patient Records regulations: The Federal rules restrict any use of the information to criminally investigate or prosecute any alcohol or drug abuse patient.[facility] the event this information is protected by the Federal Confidentiality of Alcohol and Drug Abuse Patient Records regulations: The Federal rules restrict any use of the information to criminally investigate or prosecute any alcohol or drug abuse patient.[facility] Reason for Visit (unrecogniz ed section and content) Reason Comments Pre-Op Exam Care Teams (unrecognized sec tion and content) Career Services Manager Relationship Specialty Start Date End Date Yohan An MD [address] [place] [address] PCP - General Family Medicine 05/15/21 (unrecognized sect ion and content) No Status Records Found INFORMATION SOURCE (unrecogn ized section and content) FOR RECORDS PERTAINING TO PATIENTS WHO ARE OR HAVE BEEN ENROLLED IN A CHEMICAL DEPENDENCY/SUBSTANCEABUSE PROGRAM, SOME INFORMATION MAY BE OMITTED. This clinical summary was aggregated from multiple sources. Caution should be exercised in using it in the provision of clinical care. This summary normalizes information from multiple sources, and as a consequence, information in this document may materially change the coding, format and clinical context of patient data. In addition, data may be omitted in some cases. CLINICAL DECISIONS SHOULD BE BASED ON THE PRIMARY CLINICAL RECORDS. [facility]. provides no warranty or guarantee of the accuracy or completeness of information in this document.
--- NOTE | 2024-01-30 09:27 | STRESSREP ---
Stress Test Report Pharmacologic myocardial perfusion stress test. 63-year-old man for preop orthopedic surgery Resting EKG demonstrates sinus rhythm with a rate of 81 bpm and a right bundle branch block. Resting blood pressure is 132/78 mmHg. 0.4 mg of regadenoson was infused per usual protocol followed by rapid intravenous saline flush injection. Continuous EKG monitoring was performed. The maximum heart rate was 97 bpm which was 61% of max impacted heart rate the maximum workload was 1 metabolic equivalent. At rest there were no ST or T wave changes noted to suggest ischemia and at peak infusion nonspecific ST changes were noted which did not meet the criteria for ischemia. No clinical angina is noted. The final blood pressure was 132/78 mmHg. Myocardial perfusion protocol. 14.7 mCi of technetium 99m sestamibi was injected at rest. 0.4 mg of regadenoson was infused per usual protocol. At peak infusion 45 mCi of technetium 99m sestamibi was injected stress images were obtained stress and rest images were reconstructed and compared in the short axis vertical long and horizontal long axis. Gated images were also obtained. Perfusion SPECT analysis: Review of the stress images demonstrate normal uptake of tracer noted in all areas of the myocardium. The resting images similar demonstrated normal uptake of tracer noted in all areas of the myocardium. No areas of reversibility are noted to suggest ischemia and no previous infarct is noted. Gated SPECT analysis: The gated ejection fraction is 67%. Conclusion: Normal pharmacologic myocardial perfusion stress test. Preserved ejection fraction.
== END | disposition home or self-care (01) ==
LOC: CVS 06:47
PROVIDERS: PCP Family Medicine; Referring Provider Nurse Practitioner Family; Visit Provider Nurse Practitioner Family
DX: Z01.810 Encounter for preprocedural cardiovascular examination (principal); Z95.5 Presence of coronary angioplasty implant and graft
CPT/HCPCS: 78452; 93017; A9500; A4216; J2785

== ENCOUNTER → 2025-02-24 | Outpatient (CLI) | payer OTHER, SELFPAY ==
[2025-02-24 10:51] LABS: AST(SGOT) 25 U/L (<=37); Alanine Aminotransfer ALT/SGPT 24 U/L (<=46); Albumin, Serum 4.4 g/dL (3.4-4.8); Alkaline Phosphatase 54 U/L (40-129); Bilirubin, Direct 0.19 mg/dL (0.00-0.30); Globulin 3.4 g/dL (2.2-4.2); Protein, Total 7.8 g/dL (5.9-8.4); Total Bilirubin 0.37 mg/dL (0.00-1.30)
[2025-02-24 19:23] LABS: CPK Total, Creatine Kinase 221 U/L (24-195); Cholesterol 149 mg/dL (<=200); High Density Lipoprotein 72 mg/dL; Low Density Lipoprotein Calc. 67 mg/dL; Triglycerides 49 mg/dL; Very Low Density Lipoprotein 10 mg/dL (5-40); cholesterol:hdl ratio screen 2.06
[2025-02-24 21:34] LABS: ALB/GLOB Ratio 1.3 RATIO (0.9-2.4); AST(SGOT) 25 U/L (<=37); Alanine Aminotransfer ALT/SGPT 25 U/L (<=46); Albumin, Serum 4.5 g/dL (3.4-4.8); Alkaline Phosphatase 54 U/L (40-129); Anion Gap 14 (5-15); BUN 22 mg/dL (4-19); BUN/Creat Ratio 23.8 RATIO (10-20); Calcium,Total 9.8 mg/dL (7.6-11.0); Carbon Dioxide 21.2 mmol/L (21.0-32.0); Chloride 100 mmol/L (98-108); Creatinine, Serum 0.93 mg/dL (0.70-1.20); EST Glomerular Filtration Rate 92 (>60); Globulin 3.3 g/dL (2.2-4.2); Glucose 116 mg/dL (70-99); Potassium 4.6 mmol/L (3.3-5.1); Protein, Total 7.8 g/dL (5.9-8.4); Sodium Level 134 mmol/L (133-145); Total Bilirubin 0.35 mg/dL (0.00-1.30)
== END | disposition home or self-care (01) ==
PROVIDERS: Nurse Practitioner Family; PCP Family Medicine; Referring Provider Internal Medicine Cardiovascular Disease; Visit Provider Internal Medicine Cardiovascular Disease
DX: I10 Essential (primary) hypertension (principal); I25.10 Atherosclerotic heart disease of native coronary artery without angina pectoris; I25.2 Old myocardial infarction; E78.2 Mixed hyperlipidemia
CPT/HCPCS: 36415; 80053; 80061; 80076; 82550

== ENCOUNTER → 2025-03-11 | Outpatient (CLI) | payer OTHER, SELFPAY ==
--- NOTE | 2025-03-11 13:51 | ECHOD_ITS ---
Reason For Study Reason For Study: CAD/ASHD Procedure This was a 2D Doppler, Color Flow transthoracic echocardiogram. Exam performed in department. Left Ventricle Normal size and thickness. The LV systolic function is normal. EF is 60 %. Normal diastology for age. Right Ventricle Normal right ventricle. Atria The left and right atria are normal. Mitral Valve Trivial mitral valve insufficiency. Tricuspid Valve Trivial tricuspid valve insufficiency. Normal pulmonary artery pressure. Aortic Valve Trisinus/trileaflet aortic valve. Pulmonic Valve The pulmonic valve is not well visualized. Trivial pulmonic valve insufficiency. Great Vessels Normal sized aortic root. Pericardium/Pleural No pericardial effusion. MMode/2D Measurements & Calculations LVIDd: 5.4 cm IVSd: 1.1 cm Ao root diam: 3.4 cm LVIDs: 3.7 cm LVPWd: 1.1 cm RVDd: 3.8 cm FS: 30.7 % LAV(MOD-bp): 54.5 ml LVAd ap4: 37.5 cm2 SV(MOD-sp4): 74.9 ml LAV(MOD-bp) Indexed: 24.4 ml/m2 LVLd ap4: 8.3 cm SI(MOD-sp4): 33.5 ml/m2 LAV(MOD-sp2): 56.4 ml EDV(MOD-sp4): 134.7 ml LAV(MOD-sp4): 53.2 ml EDV(sp4-el): 144.0 ml LVAs ap4: 22.6 cm2 LVLs ap4: 7.1 cm ESV(MOD-sp4): 59.8 ml ESV(sp4-el): 61.0 ml EF(MOD-sp4): 55.6 % EF(sp4-el): 57.7 % SV(sp4-el): 83.0 ml LA A4 area: 19.5 cm2 LA dimension(2D): 3.7 cm RA A4 area: 15.8 cm2 TAPSE: 2.3 cm Time Measurements MV dec time: 0.23 sec Doppler Measurements & Calculations MV E max rangel: 60.7 cm/sec Lat Peak E' Rangel: 10.7 cm/sec Med Peak E' Rangel: 9.4 cm/sec MV A max rangel: 76.6 cm/sec E/E' lat: 5.7 E/E' med: 6.4 MV E/A: 0.79 Ao V2 max: 125.7 cm/sec LV V1 max: 110.4 cm/sec PA V2 max: 88.4 cm/sec Ao max P.3 mmHg LV V1 max P.9 mmHg TR max rangel: 252.0 cm/sec TR max P.4 mmHg ECHO/Echo Complete Interpretation Summary The LV systolic function is normal. EF is 60 %. Ordering Physician: Aylin Thomas Referring Physician: KURTIS CHAVEZ Performed By: Umu Barakat RDCS
== END | disposition home or self-care (01) ==
LOC: CVS 13:50
PROVIDERS: PCP Family Medicine; Referring Provider Internal Medicine Cardiovascular Disease; Visit Provider Internal Medicine Cardiovascular Disease
DX: I25.10 Atherosclerotic heart disease of native coronary artery without angina pectoris (principal); I10 Essential (primary) hypertension; I25.2 Old myocardial infarction; Z95.5 Presence of coronary angioplasty implant and graft
CPT/HCPCS: 93306